=== PATIENT | male | born 1970 | race Two or more races ===

== ENCOUNTER 2020-02-20 07:17 | Outpatient (CLI) | payer OTHER | END 2020-02-20 07:19 | disposition home or self-care (01) | LOC: NUCLEAR 07:17 | DX: I21.4 Non-ST elevation (NSTEMI) myocardial infarction (principal); I25.118 Atherosclerotic heart disease of native coronary artery with other forms of angina pectoris | CPT/HCPCS: 78452; 93017; J0153; A9500 ==